=== PATIENT | female | born 1935 | race Caucasian/White ===

== ENCOUNTER 2018-01-06 12:09 | Emergency (ER) | payer MEDICARE, BC ==
[~2018-01-06] VITALS: Ht 152.4 cm; Wt 61.2 kg
--- NOTE | 2018-01-06 12:29 | NUR ---
Dr Mora at the bedside for MSE.
[2018-01-06] MEDS ORDERED: KETOROLAC TROMETHAMINE 30 MG INJ ONE (12:38)
[2018-01-06] MEDS ORDERED: KETOROLAC TROMETHAMINE 30 MG INJ IM ONE (12:45)
--- NOTE | 2018-01-06 13:11 | NUR ---
Pt is resting in bed, denies pain at this time. Awaiting for psychology technician.
--- NOTE | 2018-01-06 14:15 | NUR ---
Call placed to [facility] for XRAY results. They state they will read the XRAY.
--- NOTE | 2018-01-06 14:37 | NUR ---
Patient discharged to home in stable conditon. Written and verbal after care instructions given. Patient verbalizes understanding of instructions.
[2018-01-06 14:42] VITALS: BP 161/66
== END 2018-01-06 14:43 | disposition home or self-care (01) ==
LOC: ER 12:09
DX: S20.211A Contusion of right front wall of thorax, initial encounter (principal); I10 Essential (primary) hypertension; E78.00 Pure hypercholesterolemia, unspecified; E11.9 Type 2 diabetes mellitus without complications; E03.9 Hypothyroidism, unspecified; Z88.6 Allergy status to analgesic agent; W18.30XA Fall on same level, unspecified, initial encounter; Y93.89 Activity, other specified; Y92.89 Other specified places as the place of occurrence of the external cause; Y99.8 Other external cause status
CPT/HCPCS: 71101; 93005; A4663; J1885